=== PATIENT | male | born 1985 | race Caucasian/White ===

== ENCOUNTER 2019-10-21 06:27 | Emergency (ER) | payer OTHER ==
[~2019-10-21] VITALS: Ht 180.3 cm; Wt 68.2 kg
[2019-10-21 06:44] VITALS: Ht 180.3 cm; Wt 68.2 kg
[2019-10-21] MEDS ORDERED: REMERON30 MG PO (06:46)
[2019-10-21] MEDS ORDERED: DEPAKOTE250 MG (06:46)
[2019-10-21] MEDS ORDERED: ZOLOFT50 MG (06:46)
[2019-10-21] MEDS ORDERED: SMZ-TMP DS 800-1 TAB PO (07:22)
[2019-10-21 07:33] VITALS: BP 112/70
== END 2019-10-21 07:30 | disposition home or self-care (01) ==
LOC: D.ER 06:27
DX: L03.90 Cellulitis, unspecified (principal); L98.8 Other specified disorders of the skin and subcutaneous tissue

== ENCOUNTER 2019-11-01 14:47 | Inpatient (IN) | payer MEDICAID ==
[~2019-11-01] VITALS: Ht 180.3 cm; Wt 68.0 kg
[~2019-11-01 14:47] MED LIST: DEPAKOTE250 MG PO; REMERON30 MG PO; SMZ-TMP DS 800-1 TAB PO; ZOLOFT50 MG
[2019-11-01 15:43] VITALS: BP 127/75
--- NOTE | 2019-11-01 15:43 | NUR ---
SL PLACED , BLOOD DRAWN INCLUDING #1 BC
--- NOTE | 2019-11-01 15:47 | NUR ---
#2 BC DRAWN PER APPLICATION ADMINISTRATOR
[2019-11-01 16:23] LABS: CALC OSMOLALITY 258 mosm/kg (275-300); CALCIUM 8.6 mg/dL (8.5-10.1); CARBON DIOXIDE 26.9 mmol/L (21.0-32.0); CHLORIDE - SERUM 96 mmol/L (98-107); GLUCOSE 104 mg/dL (74-106); POTASSIUM - SERUM 4.1 mmol/L (3.5-5.1); SODIUM 131 mmol/L (136-145); UREA NITROGEN 1 mg/dL (7-18); eGFR NON AFRICAN AMERICAN 90 mL/min (90-120)
[2019-11-01 16:26] LABS: BILIRUBIN NEGATIVE (NEGATIVE); GLUCOSE NEGATIVE (NEGATIVE); KETONE NEGATIVE (NEGATIVE); NITRITE NEGATIVE (NEGATIVE); UROBILINOGEN NORMAL (NORMAL)
[2019-11-01 16:31] LABS: BASOPHILS 0.2 % (0-2); EOSINOPHILS 0.1 % (0-7); HEMOGLOBIN 13.8 g/dL (13.5-17.5); IMMATURE GRANULOCYTES 0.3 % (0-5); LYMPHOCYTES 19.2 % (15-50); MCH 31.7 pg (26.0-34.0); MCHC 35.4 g/dL (31.0-37.0); MCV 89.7 fL (80.0-100.0); MEAN PLATELET VOLUME 8.9 fL (7.4-10.4); MONOCYTES 11.6 % (2-11); NEUTROPHILS 68.6 % (40-80); PLATELET COUNT 292 10x3/uL (130-400); RBC 4.35 10x6/uL (4.20-6.10); WBC 8.7 10x3/uL (4.8-10.8)
[2019-11-01 16:40] LABS: ALBUMIN 3.5 g/dL (3.4-5.0); ALKALINE PHOSPHATASE 66 U/L (30-120); ALT (SGPT) 30 U/L (10-68); BILIRUBIN - TOTAL 0.14 mg/dL (0.2-1.3); CKMB 0.7 U/L (0.0-3.6); CREATINE KINASE 217 UL (21-232); PROTEIN - SERUM 6.9 g/dL (6.4-8.2)
[2019-11-01 16:41] LABS: INR 0.95 (0.85-1.17); PROTIME 12.7 SECONDS (11.6-15.0)
[2019-11-01 16:42] LABS: APTT 35.4 SECONDS (22.8-39.4)
[2019-11-01 16:45] LABS: TROPONIN-I < 0.017 ng/mL (0.000-0.060)
[2019-11-01 17:07] VITALS: BP 136/80
--- NOTE | 2019-11-01 17:28 | NUR ---
REPORT TO JENNIFER BOWER
--- NOTE | 2019-11-01 17:45 | NUR ---
ADMIT6 TO ROOM #2212, CONDITION STABLE. NS INFUSING @ 125 ML/HR AND VANCOMYCIN 1 GM INITATED UPON ADM TO ROOM
--- NOTE | 2019-11-01 17:45 | NUR ---
RECEIVED PATIENT FROM ER. ALERT AND ORIENTED. NO C/O PAIN. NO S/S OF ACUTE DISTRESS NOTED. WOUNDS TO NECK, NECROTIC WITH CELLULITIS. IV TO LEFT FOREARM, NS INFUSING @ 125ML/HR. SITE PATENT WITHOUT REDNESS OR SWELLING. VITALS STABLE. DENIES ANY NEEDS AT THIS TIME. CALL LIGHT IN REACH. WILL CONTINUE TO MONITOR.
[2019-11-01 17:46] LABS: UDS - AMPHET NEGATIVE QUAL (NEGATIVE); UDS - BARB NEGATIVE QUAL (NEGATIVE); UDS - BENZO NEGATIVE QUAL (NEGATIVE); UDS - COCAINE NEGATIVE QUAL (NEGATIVE); UDS - OPIATE NEGATIVE QUAL (NEGATIVE); UDS - PCP NEGATIVE QUAL (NEGATIVE); UDS - THC NEGATIVE QUAL (NEGATIVE)
[2019-11-01] MEDS ORDERED: LEVO-T25 MCG PO (17:58)
[2019-11-01 18:26] VITALS: BP 117/73
--- NOTE | 2019-11-01 19:22 | NUR ---
ALERT AND ORIENTED. NO C/O PAIN. NO S/S OF ACUTE DISTRESS NOTED. DENIES ANY NEEDS AT THIS TIME. CALL LIGHT IN REACH. WILL CONTINUE TO MONITOR.
[2019-11-01 20:00] VITALS: BP 117/73; BMI 20.9
[2019-11-01 21:33] VITALS: BP 116/69
[2019-11-02 01:11] VITALS: BP 131/79
[2019-11-02 06:49] VITALS: BP 114/64
[2019-11-02 07:00] LABS: CALC OSMOLALITY 266 mosm/kg (275-300); CALCIUM 8.1 mg/dL (8.5-10.1); CARBON DIOXIDE 25.8 mmol/L (21.0-32.0); CHLORIDE - SERUM 103 mmol/L (98-107); CREATININE - SERUM 0.8 mg/dL (0.6-1.3); GLUCOSE 97 mg/dL (74-106); MAGNESIUM - SERUM 2.1 mg/dL (1.8-2.4); POTASSIUM - SERUM 4.3 mmol/L (3.5-5.1); SODIUM 135 mmol/L (136-145); eGFR NON AFRICAN AMERICAN > 90 mL/min (90-120)
[2019-11-02 07:01] LABS: BASOPHILS 0.3 % (0-2); EOSINOPHILS 0 % (0-7); HEMATOCRIT 36.2 % (42.0-54.0); HEMOGLOBIN 12.3 g/dL (13.5-17.5); IMMATURE GRANULOCYTES 0.1 % (0-5); LYMPHOCYTES 17.6 % (15-50); MCH 30.7 pg (26.0-34.0); MCV 90.3 fL (80.0-100.0); MONOCYTES 10.2 % (2-11); NEUTROPHILS 71.8 % (40-80); PLATELET COUNT 285 10x3/uL (130-400); RBC 4.01 10x6/uL (4.20-6.10); RDW 13.2 % (11.5-14.5); WBC 7.7 10x3/uL (4.8-10.8)
[2019-11-02 07:02] LABS: UREA NITROGEN 3 mg/dL (7-18)
--- NOTE | 2019-11-02 08:42 | NUR ---
HE IS AWAKE, TALKING. HE HAS BLACK BIALTERALLY WOUNDS ON HIS NECK. HE IS NOT EATING BREAKFAST YET, HE IS WAITING FOT THE DOCTOR TO SEE HIM. HE WANTS TO TAKE HIS OWN MEDS, I EXPLAINED TO HIM THAT THEY WILL HAVE TO BE IN THE PRESCRIPTION BOTTLE. THE CALL LIGHT IS WITHIN REACH.
[2019-11-02 09:07] VITALS: BP 113/72
[2019-11-02 13:45] VITALS: BP 124/75
[2019-11-02 13:47] VITALS: Ht 180.3 cm; Wt 68.0 kg
--- NOTE | 2019-11-02 16:52 | NUR ---
THE PATIENT WAS TOLD HE COULD TAKE HIS OWN MEDICATIONS. HIS PRESCRIPTIONS BOTTLES OF SYNTHROID, DEPAKOTE, REMERON TAKEN TO THE PHARMACY TO USE WHILE HE IS HERE.
[2019-11-02 17:56] VITALS: BP 119/77
[2019-11-02 20:00] VITALS: BP 102/57
--- NOTE | 2019-11-02 20:00 | NUR ---
PATIENT RESTING IN BED WITH COVERS OVER HEAD. NO S/S OF ACUTE DISTRESS. NO C/O AT THIS TIME. PATIENT HAS IV IN LEFT FOREARM, NORMAL SALINE @ KVO. IV IS PATENT WITHOUT REDNESS, SWELLING, OR TENDERNESS. PATIENT HAS 3 SCABBED SORES ON NECK (LEFT, RIGHT, AND BACK), THE SCABS ARE BLACK AND PATIENT STATES THEY MILDLY ITCH EVERY ONCE IN A WHILE. PATIENT IS HAVING A BIOPSY TOMORROW, CONSENTS ARE SIGNED. CALL LIGHT WITHIN REACH. WILL CONTINUE TO MONITOR.
[2019-11-03] VITALS: BP 92/62
--- NOTE | 2019-11-03 03:56 | NUR ---
I have reviewed this patient and I concur with the Shift Assessment completed by the Licensed Practical Nurse today this shift.
[2019-11-03 04:00] VITALS: BP 108/69
[2019-11-03 06:41] LABS: BASOPHILS 0.4 % (0-2); EOSINOPHILS 0 % (0-7); HEMATOCRIT 36.8 % (42.0-54.0); HEMOGLOBIN 12.8 g/dL (13.5-17.5); IMMATURE GRANULOCYTES 0.1 % (0-5); LYMPHOCYTES 26.1 % (15-50); MCH 31.4 pg (26.0-34.0); MCHC 34.8 g/dL (31.0-37.0); MCV 90.2 fL (80.0-100.0); MEAN PLATELET VOLUME 8.7 fL (7.4-10.4); MONOCYTES 12.7 % (2-11); NEUTROPHILS 60.7 % (40-80); PLATELET COUNT 289 10x3/uL (130-400); RBC 4.08 10x6/uL (4.20-6.10); RDW 13.1 % (11.5-14.5); WBC 8.5 10x3/uL (4.8-10.8)
[2019-11-03 06:59] LABS: CALC OSMOLALITY 270 mosm/kg (275-300); CALCIUM 8.5 mg/dL (8.5-10.1); CARBON DIOXIDE 26.3 mmol/L (21.0-32.0); CHLORIDE - SERUM 104 mmol/L (98-107); CREATININE - SERUM 0.7 mg/dL (0.6-1.3); GLUCOSE 94 mg/dL (74-106); MAGNESIUM - SERUM 2.1 mg/dL (1.8-2.4); POTASSIUM - SERUM 4.2 mmol/L (3.5-5.1); SODIUM 137 mmol/L (136-145); eGFR NON AFRICAN AMERICAN > 90 mL/min (90-120)
[2019-11-03 07:05] LABS: UREA NITROGEN 5 mg/dL (7-18)
--- NOTE | 2019-11-03 07:50 | NUR ---
PT IS RESTING IN BED WITH EYES CLOSED. RESPIRATIONS ARE EVEN AND UNLABORED. PT IS EASILY AROUSED WITH VERBAL STIMULATION. PT IS AAO X 4 UPON AROUSAL. PIV TO LEFT FA INFUSING PER ORDER WITHOUT DIFFICULTY. PT DENIES PRESENCE OF PAIN/N/V AT THIS TIME. NECROTIC TISSUE NOTED TO LEFT NECK/RIGHT NECK AND BACK OF NECK. PT EXPRESSES CONCERNS RELATED TO HOME MEDICATION AND RESTARTING PSYCH MEDS. HOME MED REC GONE OVER WITH PT AT THIS TIME. PT DENIES PRESENCE OF DYSPNEA. BED IS IN THE LOWEST POSITION. CALL LIGHT AND BEDSIDE TABLE ARE WITHIN REACH. SIDE RAILS X 2. PT DENIES FURTHER NEEDS. WILL CONT TO MONITOR.
[2019-11-03] MEDS ORDERED: SAPHRIS5 MG SL (08:27)
[2019-11-03] MEDS ORDERED: FLUPHENAZINE HC10 MG PO (08:27)
--- NOTE | 2019-11-03 13:35 | NUR ---
ET TUBE IN AIRWAY ON ADMIT TO RR
[2019-11-03 14:09] VITALS: BP 108/61
--- NOTE | 2019-11-03 14:11 | NUR ---
PT ARRIVES TO ROOM VIA BED ESCORTED BY RECOVERY ROOM STAFF. PT IS AAO X 4. DRESSINGS TO NECK NOTED AND ARE CDI. VSS SEE FLOW SHEET. BED IS IN THE LOWEST POSITION. CALL LIGHT AND BEDSIDE TABLE ARE WITHIN REACH. PT DENIES PRESENCE OF N/V/PAIN AT THIS TIME. PT DENIES FURTHER NEEDS. SCDS ARE ON AND WORKING. PT DENIES FURTHER NEEDS. WILL CONT TO MONITOR.
[2019-11-03 15:13] VITALS: BP 115/71
[2019-11-03 16:17] LABS: MAGNESIUM - SERUM 1.8 mg/dL (1.8-2.4); VANCOMYCIN - TROUGH 5.6 ug/mL (10.0-20.0)
--- NOTE | 2019-11-03 17:23 | NUR ---
PAGE PLACED TO CONNIE WINSTON APRN FOR TO NOTIFY OF PT CONTINUED CONCERN RELATED TO HOME MEDICATION.
[2019-11-03 18:43] VITALS: BP 106/66
[2019-11-03 20:00] VITALS: BP 111/58
--- NOTE | 2019-11-03 20:13 | NUR ---
A&0 X 4, DENIES PAIN. BILAT DRESSINGS TO NECK C/D/I. STATES HIS NIGHT MED IS LATE. INFORMED HIM IT IS DUE AT 9PM. PT STATES HE TAKES ONE MEDICATION AT 8PM. THE OTHER 3 9PM SCHEDULED MEDS, HE REFUSES TO TAKE UNTIL 10PM BECAUSE THAT IS HOW HE TAKES THEM AT HOME.
--- NOTE | 2019-11-04 03:43 | NUR ---
I have reviewed this patient and I concur with the Shift Assessment completed by the Licensed Practical Nurse today this shift.
[2019-11-04 04:00] VITALS: BP 115/66
[2019-11-04 08:27] LABS: BASOPHILS 0.6 % (0-2); EOSINOPHILS 0 % (0-7); HEMATOCRIT 36.9 % (42.0-54.0); HEMOGLOBIN 12.5 g/dL (13.5-17.5); IMMATURE GRANULOCYTES 0.1 % (0-5); LYMPHOCYTES 27.5 % (15-50); MCH 30.9 pg (26.0-34.0); MCHC 33.9 g/dL (31.0-37.0); MCV 91.1 fL (80.0-100.0); MEAN PLATELET VOLUME 8.8 fL (7.4-10.4); MONOCYTES 11.3 % (2-11); NEUTROPHILS 60.5 % (40-80); PLATELET COUNT 300 10x3/uL (130-400); RBC 4.05 10x6/uL (4.20-6.10); RDW 13.1 % (11.5-14.5); WBC 8.3 10x3/uL (4.8-10.8)
[2019-11-04 08:36] LABS: CALC OSMOLALITY 270 mosm/kg (275-300); CALCIUM 8.5 mg/dL (8.5-10.1); CHLORIDE - SERUM 105 mmol/L (98-107); CREATININE - SERUM 0.8 mg/dL (0.6-1.3); GLUCOSE 80 mg/dL (74-106); MAGNESIUM - SERUM 2.1 mg/dL (1.8-2.4); POTASSIUM - SERUM 4.3 mmol/L (3.5-5.1); SODIUM 137 mmol/L (136-145); eGFR NON AFRICAN AMERICAN > 90 mL/min (90-120)
[2019-11-04 08:38] LABS: UREA NITROGEN 7 mg/dL (7-18)
[2019-11-04 08:41] VITALS: BP 121/67
--- NOTE | 2019-11-04 08:45 | NUR ---
RESTING IN BED, NO DISTRESS NOTED, EYES CLOSED, CONT TO MONITOR NECK WOUNDS AND DRESSINGS
[2019-11-04 12:16] VITALS: BP 118/73
--- NOTE | 2019-11-04 12:40 | OP ---
PATIENT NAME: GLADIS RUVALCABA MEDICAL RECORD: [id number] :81 LOCATION:[facility] ADMISSION DATE:11/01/19 SURGEON: MAYE SHAH MD DATE OF OPERATION: 11/03/2019 SURGEON: Maye Shah MD PREOPERATIVE DIAGNOSIS: Necrotic tissue, right anterior neck, left anterior neck, and posterior neck. POSTOPERATIVE DIAGNOSIS: Necrotic tissue, right anterior neck, left anterior neck, and posterior neck. PROCEDURE PERFORMED: 1. Incisional biopsy of anterior right and left neck wounds. 2. Excisional debridement of bilateral anterior neck wounds; right side 4 x 4 x 2 cm and left side 5 x 3 x 2 cm. ANESTHESIA: General. COMPLICATIONS: None. SPECIMENS: 1. Skin biopsy for pathology. 2. Skin biopsy for Gram stain culture and sensitivity, anaerobic and aerobic culture and fungal culture. Case was contaminated. ESTIMATED BLOOD LOSS: 10 cc. OPERATIVE COURSE: After consent was obtained, the patient was taken to the operating room and placed in the supine position on the operating table. Next, general anesthesia was given via endotracheal intubation. Thereafter, a timeout was performed to confirm the correct patient and procedure. The neck was prepped and draped in typical sterile fashion. The eschar was sharply debrided using a 15 blade scalpel from the right anterior neck first. The area of debridement was 4 x 4 x 2 cm. Skin biopsies were taken at the edge of the eschar and sent for Gram stain culture and sensitivity and fungal culture. Additional skin biopsy specimens were sent for pathology. The wound bed was then cauterized. The necrotic tissue was debrided until good healthy bleeding tissue was encountered. A Dakin's quarter strength gauze was placed into the wound bed and covered. We then turned our attention to the left side. Again, the eschar was sharply debrided. Total area debrided was 5 x 3 x 2 cm. The wound bed was again cleaned until healthy bleeding tissue was encountered. The wound bed was then cauterized with electrocautery. There was no evidence of bleeding. Another Dakin's dressing was placed in the wound bed and cover with dry gauze dressings. At the end of the case, all needle and instrument counts were correct. No complications occurred. The patient was extubated and transferred to the PACU in stable condition. TRANSINT:[id number] Voice Confirmation ID: [id number] DOCUMENT ID: [id number] OPERATIVE REPORT [id number] GLADIS RUVALCABA,MAYE Hensley MD at 1240 CC: [id number] DICTATION DATE: 11/03/19 131 SOW FARM MANAGER: 11/03/19 2252 ADM IN [facility] [address] [place] [address]
--- NOTE | 2019-11-04 14:00 | NUR ---
DRESSING CHANGED TO RIGHT AND LEFT NECK, WET TO DRY APPLIED, BAILEY WELL, NO BLEEDING NOTED, CONT TO MONITOR
[2019-11-04 16:15] VITALS: BP 119/88
[2019-11-04 20:00] VITALS: BP 117/68
--- NOTE | 2019-11-04 20:00 | NUR ---
PATIENT RESTING IN BED WITH EYES OPEN. NO S/S OF ACUTE DISTRESS. NO C/O AT THIS TIME. PATIENT HAS LEFT FOREARM IV, NORMAL SALINE @ 10 ML/HR. IV IS PATENT WITHOUT REDNESS, SWELLING, OR TENDERNESS. PATIENT HAS SORES ON LEFT AND RIGHT SIDE OF NECK, DRESSINGS C/D/I. PATIENT HAS A SORE ON BACK OF NECK THAT HAS SCAB OVER IT. PATIENT IS UP ADLIB TO BATHROOM. CALL LIGHT WITHIN REACH. WILL CONTINUE TO MONITOR.
[2019-11-05] VITALS: BP 117/79
--- NOTE | 2019-11-05 03:32 | NUR ---
I have reviewed this patient and I concur with the Shift Assessment completed by the Licensed Practical Nurse today this shift.
[2019-11-05 04:00] VITALS: BP 106/57
[2019-11-05 06:27] LABS: BASOPHILS 0.9 % (0-2); EOSINOPHILS 0.2 % (0-7); HEMATOCRIT 34.5 % (42.0-54.0); HEMOGLOBIN 11.7 g/dL (13.5-17.5); IMMATURE GRANULOCYTES 0.2 % (0-5); LYMPHOCYTES 39.2 % (15-50); MCH 30.7 pg (26.0-34.0); MCHC 33.9 g/dL (31.0-37.0); MCV 90.6 fL (80.0-100.0); MEAN PLATELET VOLUME 8.7 fL (7.4-10.4); MONOCYTES 14.8 % (2-11); NEUTROPHILS 44.7 % (40-80); PLATELET COUNT 292 10x3/uL (130-400); RBC 3.81 10x6/uL (4.20-6.10); RDW 12.9 % (11.5-14.5)
[2019-11-05 06:34] LABS: CALC OSMOLALITY 274 mosm/kg (275-300); CALCIUM 8.2 mg/dL (8.5-10.1); CARBON DIOXIDE 27.3 mmol/L (21.0-32.0); CHLORIDE - SERUM 107 mmol/L (98-107); CREATININE - SERUM 0.7 mg/dL (0.6-1.3); GLUCOSE 88 mg/dL (74-106); MAGNESIUM - SERUM 2.1 mg/dL (1.8-2.4); POTASSIUM - SERUM 4.1 mmol/L (3.5-5.1); SODIUM 139 mmol/L (136-145); UREA NITROGEN 7 mg/dL (7-18); eGFR NON AFRICAN AMERICAN > 90 mL/min (90-120)
[2019-11-05 06:39] LABS: WBC 5.5 10x3/uL (4.8-10.8)
--- NOTE | 2019-11-05 07:44 | NUR ---
PT LYING IN BED WITH COVERS OVER HIS HEAD. PT EASILY AWAKENED AND COOPERATED WITH ASSESSMENT. IV IN LEFT FA, PATENT, SITE IS CDI, NO REDNESS OR SWELLING AT SITE. PT DRESSING ON NECK IS CDI. PT REQUESTED CHEESEBURGER FOR LUNCH, PT DOES NOT HAVE DIET ON FILE BUT WAS BROUGHT A TRAY. WILL ADD DIET TO PT CHART. NO OTHER NEEDS VOICED, CL IN REACH, BED IN LOWEST POSITION. ASSUME PT CARE
[2019-11-05 08:10] VITALS: BP 103/58
--- NOTE | 2019-11-05 12:00 | NUR ---
ADMINISTERED SCHEDULED MEDICATION TO PT, APPLIED TAGADERM TO PT NICOTINE PATCH SO THAT HE WOULD NOT LOSE IT EASILY. CHANGED PT DRESSINGS ON LEFT AND RT NECK AREA, PT HAD SEVERAL QUESTIONS IN REGARDS TO PATHOLOGY AND WHEN IT SHOWS CANCER WHAT OUR PLAN WILL BE. EXPLAINED TO PT THAT IF PATHOLOGY SHOWS CANCER CELLS WE WILL MOST LIKELY CONSULT ONCOLOGIST AND DEPENDING ON THE TYPE AND STAGE TREATMENT WILL GO FROM THERE. PT STATES " I KNOW IT IS CANCER BECAUSE IT RUNS ON MY MOTHERS SIDE. ENCOURAGED PT TO THINK POSITIVE AND TO NOT WEBB AHEAD OF THE TEST RESULTS. EXPLAINED MY CLEANING AND REDRESSING PT WOUNDS AND THE NEED FOR ABX AND DRESSING CHANGES. PT VERBALIZED UNDERSTANDING AND THANKED ME FOR TAKING TIME TO TALK WITH HIM. CONTINUE WITH PLAN OF CARE
[2019-11-05 12:19] VITALS: BP 117/70
--- NOTE | 2019-11-05 15:12 | NUR ---
PT ASLEEP IN BED WITH BLANKET OVER HEAD. NO S/SX OF DISTRESS. CL IN REACH. DRESSINGS INTACT, CONTINUE WITH PLAN OF CARE
[2019-11-05 16:44] VITALS: BP 108/66
--- NOTE | 2019-11-05 16:55 | NUR ---
I have reviewed this patient and I concur with the Shift Assessment completed by the Licensed Practical Nurse today this shift.
[2019-11-05 20:00] VITALS: BP 103/63
--- NOTE | 2019-11-05 21:30 | NUR ---
LYING IN BED WATCHING TV AND WRITING IN NOTEBOOK. ALERT AND ORIENTED X4. RESP EVEN AND NONLABORED. DRSGS NOTED TO RT AND LT SIDE OF NECK AND BACK OF NECK. RATES PAIN IN NECK 2 ON PAIN SCALE. AMBULATORY. NO DISTRESS. DENIES NEEDS. NS @ 10 MLHR INFUSING IN LT FOREARM. SR ELEVATED X2. CL IN REACH.
[2019-11-06] VITALS (7 sets, daily range): BP systolic 99–122; BP diastolic 50–69
--- NOTE | 2019-11-06 03:05 | NUR ---
RESTING WITH EYES CLOSED. RESP EVEN AND NONLABORED. NO DISTRESS. CL IN REACH.
[2019-11-06 04:51] LABS: EOSINOPHILS 0.2 % (0-7); HEMATOCRIT 34.5 % (42.0-54.0); HEMOGLOBIN 11.6 g/dL (13.5-17.5); IMMATURE GRANULOCYTES 0.3 % (0-5); LYMPHOCYTES 39.7 % (15-50); MCH 30.5 pg (26.0-34.0); MCHC 33.6 g/dL (31.0-37.0); MCV 90.8 fL (80.0-100.0); MEAN PLATELET VOLUME 8.7 fL (7.4-10.4); MONOCYTES 11.9 % (2-11); NEUTROPHILS 46.9 % (40-80); PLATELET COUNT 295 10x3/uL (130-400); RDW 12.8 % (11.5-14.5); WBC 6.2 10x3/uL (4.8-10.8)
[2019-11-06 05:04] LABS: CALC OSMOLALITY 276 mosm/kg (275-300); CALCIUM 8.4 mg/dL (8.5-10.1); CARBON DIOXIDE 29.2 mmol/L (21.0-32.0); CHLORIDE - SERUM 107 mmol/L (98-107); CREATININE - SERUM 0.7 mg/dL (0.6-1.3); GLUCOSE 93 mg/dL (74-106); MAGNESIUM - SERUM 2.1 mg/dL (1.8-2.4); POTASSIUM - SERUM 4.1 mmol/L (3.5-5.1); SODIUM 139 mmol/L (136-145); eGFR NON AFRICAN AMERICAN > 90 mL/min (90-120)
[2019-11-06 05:05] LABS: UREA NITROGEN 9 mg/dL (7-18)
--- NOTE | 2019-11-06 09:30 | NUR ---
PT LYING IN BED SIDEWAYS STATED HE FEELS "STUPID, EMBARASSED AND HAPPY AT THE SAME TIME. ASKDE PT WHY HE FEELS THIS WAY AND PT STATD THAT HE WAS JUST INFORMED THAT HE DOES NOT HAVE CANCER AND HE FEELS BAD FOR WASTING EVERYONES TIME. TOLD PATIENT THAT I AM GLAD HE CHOSE TO COME IN TO GET ANSWERS THAT WERE NEEDED AND THAT NOW WE CAN MOVE FORAWRD. PT STATED HE IS TO BE DC HOME TODAY AND ASKED WHEN HE GETS TO LEAVE. EXPLAINED PT NEEDS TO STILL SEE HOSPITALIST BEFORE DC CAN BE PLACED. NO OTHER NEEDS AT THIS TIME. CONTINUE WITH PLAN OF CARE
[2019-11-06 10:08] LABS: FUNGUS STAIN Final report (())
--- NOTE | 2019-11-06 10:49 | NUR ---
I have reviewed this patient and I concur with the Shift Assessment completed by the Licensed Practical Nurse today this shift.
--- NOTE | 2019-11-06 11:58 | NUR ---
PT REFUSED TORADOL, STATED HE IS GOING HOME AND DIDN'T WANT ANYTHING ELSE. ASKED IF DOCTORS HAD MADE IT AND I TOLD PT NOT YET BUT SHOULDN'T BE LONGER. CONTINUE WITH PLAN OF CARE
--- NOTE | 2019-11-06 16:02 | NUR ---
PT STATED HE WAS BEING D/C AND SURGEY SAID HE CAN GO, SPOKE TO DR PERKINS AND THAD THOMPSON IN REGARDS TO PT DC, ASKD ME TO PAGE DR SHAH AND CONFIRMED OK TO DC. PAGED DR SHAH AND WAS TOLD YES. RELAYED MESSAGE TO DR MAYORGA. PT REFUSED IV ABX SCHEDULED STATED HE IS GOING HOME AND REFUSED VANC TROUGH. CONTINUE WITH PLAN OF CARE
--- NOTE | 2019-11-06 20:00 | NUR ---
ALERT UP AMBULATING IN ROOM, ASKING ABOUT DISCHARGE TONIGHT, INSTRUCTED HAD SPOKE WITH CARLEY ONEIL AND NEED TO STAY TONIGHT FOR IV ANTIABIOTICS, AGREED, SEE SHIFT ASSESSMENT, CALL LIGHT IN REACH
[2019-11-07 04:00] VITALS: BP 108/53
[2019-11-07 06:26] LABS: BASOPHILS 0.9 % (0-2); EOSINOPHILS 0.2 % (0-7); HEMATOCRIT 35.7 % (42.0-54.0); HEMOGLOBIN 12.1 g/dL (13.5-17.5); IMMATURE GRANULOCYTES 0.4 % (0-5); LYMPHOCYTES 38.5 % (15-50); MCH 30.6 pg (26.0-34.0); MCHC 33.9 g/dL (31.0-37.0); MCV 90.2 fL (80.0-100.0); MONOCYTES 12.1 % (2-11); NEUTROPHILS 47.9 % (40-80); PLATELET COUNT 310 10x3/uL (130-400); RBC 3.96 10x6/uL (4.20-6.10); RDW 12.7 % (11.5-14.5); WBC 5.4 10x3/uL (4.8-10.8)
[2019-11-07 06:41] LABS: ALBUMIN 2.6 g/dL (3.4-5.0); ALKALINE PHOSPHATASE 60 U/L (30-120); ALT (SGPT) 59 U/L (10-68); BILIRUBIN - TOTAL 0.37 mg/dL (0.2-1.3); CALC OSMOLALITY 278 mosm/kg (275-300); CALCIUM 7.4 mg/dL (8.5-10.1); CARBON DIOXIDE 25.5 mmol/L (21.0-32.0); CHLORIDE - SERUM 108 mmol/L (98-107); CREATININE - SERUM 0.7 mg/dL (0.6-1.3); GLUCOSE 95 mg/dL (74-106); MAGNESIUM - SERUM 1.9 mg/dL (1.8-2.4); PHOSPHOROUS 3.9 mg/dL (2.5-4.9); PROTEIN - SERUM 5.9 g/dL (6.4-8.2); SODIUM 141 mmol/L (136-145); UREA NITROGEN 7 mg/dL (7-18); VALPROIC ACID (DEPAKOTE) 5.5 ug/mL (50.0-100.0); eGFR NON AFRICAN AMERICAN > 90 mL/min (90-120)
[2019-11-07 06:50] LABS: POTASSIUM - SERUM 3.4 mmol/L (3.5-5.1)
--- NOTE | 2019-11-07 07:46 | NUR ---
ALERT AND ORIENTED. LUNGS CLEAR BILATERALLY. HEART SOUNDS S1 AND S2 HEARD IN ALL AYERS. BOWEL SOUNDS ACTIVE X 4. DRSGS TO NECK C/D/I. IV TO RIGHT HAND PATENT WITHOUT REDNESS. DENIES NEEDS. BED LOW. CALL MORALES AND PERSONAL ITEMS IN REACH. WILL CONTINUE TO MONITOR.
[2019-11-07 08:14] VITALS: BP 89/53
--- NOTE | 2019-11-07 11:01 | NUR ---
DRSG CHANGED TO NECK X 3 PER ORDER.
[2019-11-07] MEDS ORDERED: CLEOCIN HCL300 MG PO (11:10)
[2019-11-07] MEDS ORDERED: VIBRAMYCIN 100100 MG PO (11:11)
[2019-11-07] MEDS ORDERED: SANTYL30 GM TP (11:15)
--- NOTE | 2019-11-07 12:37 | NUR ---
DISCHARGE EDUCATION PROVIDED BOTH WRITTEN AND VERBAL. VERBALIZED UNDERSTANDING. DENIES FURTHER QUESTIONS. CRYSTAL SENT HOME WITH PATIENT ALONG WITH GAUZE AND TAPE FOR DRSG CHANGED. EDUCATION PROVIDED FOR DRSG CHANGES. VERBALIZED UNDERSTANDING. IV REMOVED FROM RIGHT HAND WITH TIP INTACT. EATING LUNCH PRIOR TO DC.
--- NOTE | 2019-11-07 12:45 | MORECARE ---
CASE MANAGEMENT DISCHARGE SUMMARY PATIENT: GLADIS RUVALCABA UNIT: [id number] ADM DATE: 11/01/19 AGE: 33 : 81 SEX: M ROOM/BED: D.2212 AUTHOR: GUILLERMINA,DOC PHYSICIAN: REFERRING PHYSICIAN: NIA LOZA MD DATE OF SERVICE: 11/07/19 Discharge Plan Patient Name: GLADIS RUVALCABA Facility: [facility]:[place] : 1985 Planned Disposition: Home Anticipated Discharge Date: 11/07/19 Discharge Date: Expected LOS: 6 Initial Reviewer: [email or web address] Initial Review Date: 11/01/2019 Generated: 11/07/19 1:45 pm Comments DCP- Discharge Planning Updated by [email or web address]: Vane Russell on 11/07/19 11:[address] CM met with patient to complete initial dc planning assessment. CM educated patient on the CM role and verbal consent given by patient to complete assessment. Patient is in the process of moving from [place] to [place]. Patient states that he will be discharging home with his brother, Luis Armando Ruvalcaba Jr (no phone #) and feels this is a safe discharge. Also, states that his crxwiz-ws-ech will changing his dressings. Patient does not have a PCP as yet. Pharmacy: [facility]. Emergency contact: Shelby Youssef #[phone] (ex-). Patient states that he has a good support system with his ex-, brother and xbfmny-nc-ujt. Nursing has supplied the patient with his dressings, Santyl ointment and tape. Encouraged patient to make sure that his hands are freshly washed any time that he touches his neck, in order to avoid further infection. 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 CM discussed availability of home health, rehab services, and medical equipment. Patient denied known discharge needs at this time. Patient will be driven home by his pwurcw-ye-fpl. Patient voices no additional needs at this time. DCPIA - Discharge Planning Initial Assessment Updated by [email or web address]: Vane Russell on 11/07/19 12:42 pm * Is the patient Alert and Oriented? Yes * PCP None at present * Pharmacy [facility] * Preadmission Environment Home Alone * ADLs Independent * Equipment None * Other Equipment NA * List name and contact numbers for known caregivers / representatives who currently or will assist patient after discharge: Shelby Youssef (ex-) [phone] * Verbal permission to speak to the caregivers and representatives has been obtained from the patient. N/A * Community resources currently utilized None * Please name any agencies selected above. NA * Additional services required to return to the preadmission environment? No * Can the patient safely return to the preadmission environment? Yes * Has this patient been hospitalized within the prior 30 days at any hospital? No Patient Name: GLADSI RUVALCABA Page [id number] at 1245 All edits/amendments must be made on the electronic document DICTATION DATE: 11/07/19 1245 INSURANCE ATTORNEY: PRADEEP 11/07/19 1245 RPT#: [id number] [place] DATE: STATUS: ADM IN [facility] [address] [place] [address] END OF REPORT
[2019-11-07 12:54] VITALS: BP 125/76
--- NOTE | 2019-11-07 12:56 | MORECARE ---
CASE MANAGEMENT DISCHARGE SUMMARY PATIENT: GLADIS RUVALCABA UNIT: [id number] ADM DATE: 11/01/19 AGE: 33 : 81 SEX: M ROOM/BED: D.2212 AUTHOR: GUILLERMINA,DOC PHYSICIAN: REFERRING PHYSICIAN: NIA LOZA MD DATE OF SERVICE: 11/07/19 Discharge Plan Patient Name: GLADIS RUVALCABA Facility: [facility]:[place] : 1985 Planned Disposition: Home Anticipated Discharge Date: 11/07/19 Discharge Date: Expected LOS: 6 Initial Reviewer: [email or web address] Initial Review Date: 11/01/2019 Generated: 11/07/19 1:55 pm Comments DCP- Discharge Planning Updated by [email or web address]: Vane Russell on 11/07/19 11:[address] CM met with patient to complete initial dc planning assessment. CM educated patient on the CM role and verbal consent given by patient to complete assessment. Patient is in the process of moving from [place] to [place]. Patient states that he will be discharging home with his brother, Luis Armando Ruvalcaba Jr (no phone #) and feels this is a safe discharge. Patient's phone #[phone]. States that he is in the process of changing his address. Also, states that his ulbizl-ia-aun will be changing his dressings. Patient does not have a PCP as yet. Pharmacy: [facility]. Emergency contact: Shelby Domoniqeu #[phone] (ex-). Patient states that he has a good support system with his ex-, brother and asnpws-sl-mhp. Nursing has supplied the patient with his dressings, Santyl ointment and tape. Encouraged patient to make sure that his hands are freshly washed any time that he touches his neck, in order to avoid further infection. 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 CM discussed availability of home health, rehab services, and medical equipment. Patient denied known discharge needs at this time. Patient will be driven home by his zlpice-uy-wdw. Patient voices no additional needs at this time. DCPIA - Discharge Planning Initial Assessment Updated by [email or web address]: Vane Russell on 11/07/19 12:42 pm * Is the patient Alert and Oriented? Yes * PCP None at present * [facility]acy [facility] * Preadmission Environment Home Alone * ADLs Independent * Equipment None * Other Equipment NA * List name and contact numbers for known caregivers / representatives who currently or will assist patient after discharge: Shelby Youssef (ex-) [phone] * Verbal permission to speak to the caregivers and representatives has been obtained from the patient. N/A * Community resources currently utilized None * Please name any agencies selected above. NA * Additional services required to return to the preadmission environment? No * Can the patient safely return to the preadmission environment? Yes * Has this patient been hospitalized within the prior 30 days at any hospital? No Last DP export: 11/07/19 11:45 am Patient Name: GLADIS RUVALCABA Page [id number] at 1256 All edits/amendments must be made on the electronic document DICTATION DATE: 11/07/19 1255 AUTOMATIC PAINT SPRAYER OPERATOR: PRADEEP 11/07/19 1255 RPT#: [id number] DC DATE: STATUS: ADM IN [facility] [address] [place] [address] END OF REPORT
--- NOTE | 2019-11-07 13:21 | NUR ---
PATIENT DC HOME WITH ALL BELONGINGS AND MEDICATIONS FROM [facility].
--- NOTE | 2019-11-07 13:54 | MORECARE ---
CASE MANAGEMENT DISCHARGE SUMMARY PATIENT: GLADIS RUVALCABA UNIT: [id number] ADM DATE: 11/01/19 AGE: 33 : 81 SEX: M ROOM/BED: D.2212 AUTHOR: GUILLERMINA,DOC PHYSICIAN: REFERRING PHYSICIAN: NIA LOZA MD DATE OF SERVICE: 11/07/19 Discharge Plan Patient Name: GLADIS RUVALCABA Facility: [facility]:[place] : 1985 Planned Disposition: Home Anticipated Discharge Date: 11/07/19 Discharge Date: 11/07/2019 Expected LOS: 6 Initial Reviewer: [email or web address] Initial Review Date: 11/01/2019 Generated: 11/07/19 2:53 pm Comments DCP- Discharge Planning Updated by [email or web address]: Vane Russell on 11/07/19 11:[address] CM met with patient to complete initial dc planning assessment. CM educated patient on the CM role and verbal consent given by patient to complete assessment. Patient is in the process of moving from [place] to [place]. Patient states that he will be discharging home with his brother, Luis Armando Ruvalcaba Jr (no phone #) and feels this is a safe discharge. Patient's phone #[phone]. States that he is in the process of changing his address. Also, states that his wwjagn-iu-bax will be changing his dressings. Patient does not have a PCP as yet. Pharmacy: [facility]. Emergency contact: Shelby Domonique #[phone] (ex-). Patient states that he has a good support system with his ex-, brother and hciyjm-bp-wpx. Nursing has supplied the patient with his dressings, Santyl ointment and tape. Encouraged patient to make sure that his hands are freshly washed any time that he touches his neck, in order to avoid further infection. 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 CM discussed availability of home health, rehab services, and medical equipment. Patient denied known discharge needs at this time. Patient will be driven home by his wmzigi-cr-wmy. Patient voices no additional needs at this time. DCPIA - Discharge Planning Initial Assessment Updated by [id number]: Vane Russell on 11/07/19 12:42 pm * Is the patient Alert and Oriented? Yes * PCP None at present * [facility]acy [facility] * Preadmission Environment Home Alone * ADLs Independent * Equipment None * Other Equipment NA * List name and contact numbers for known caregivers / representatives who currently or will assist patient after discharge: Shelby Youssef (ex-) [phone] * Verbal permission to speak to the caregivers and representatives has been obtained from the patient. N/A * Community resources currently utilized None * Please name any agencies selected above. NA * Additional services required to return to the preadmission environment? No * Can the patient safely return to the preadmission environment? Yes * Has this patient been hospitalized within the prior 30 days at any hospital? No Last DP export: 11/07/19 11:56 am Patient Name: GLADIS RUVALCABA Page 97824 at 1354 All edits/amendments must be made on the electronic document DICTATION DATE: 11/07/19 1353 TILE TRIMMER: PRADEEP 11/07/19 1353 RPT#: [id number] DC DATE:11/07/19 STATUS: DIS IN [facility] [address] [place] [address] END OF REPORT
--- NOTE | 2019-11-07 14:45 | MORECARE ---
CASE MANAGEMENT DISCHARGE SUMMARY PATIENT: GLADIS RUVALCABA UNIT: [id number] ADM DATE: 11/01/19 AGE: 33 : 81 SEX: M ROOM/BED: D.2212 AUTHOR: GUILLERMINA,DOC PHYSICIAN: REFERRING PHYSICIAN: NIA LOZA MD DATE OF SERVICE: 11/07/19 Discharge Plan Patient Name: GLADIS RUVALCABA Facility: [facility]:[place] : 1985 Planned Disposition: Home Anticipated Discharge Date: 11/07/19 Discharge Date: 11/07/2019 Expected LOS: 6 Initial Reviewer: [email or web address] Initial Review Date: 11/01/2019 Generated: 11/07/19 3:45 pm Comments DCP- Discharge Planning Updated by [email or web address]: Vane Russell on 11/07/19 11:[address] CM met with patient to complete initial dc planning assessment. CM educated patient on the CM role and verbal consent given by patient to complete assessment. Patient is in the process of moving from [place] to [place]. Patient states that he will be discharging home with his brother, Luis Armando Ruvalcaba Jr (no phone #) and feels this is a safe discharge. Patient's phone #[phone]. States that he is in the process of changing his address. Also, states that his mtgaeh-fq-wzw will be changing his dressings. Patient does not have a PCP as yet. Pharmacy: [facility]. Emergency contact: Shelby Youssef #[phone] (ex-). Patient states that he has a good support system with his ex-, brother and wmdoqm-hq-twc. Nursing has supplied the patient with his dressings, Santyl ointment and tape. Encouraged patient to make sure that his hands are freshly washed any time that he touches his neck, in order to avoid further infection. 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 CM discussed availability of home health, rehab services, and medical equipment. Patient denied known discharge needs at this time. Patient will be driven home by his tkbhvf-ek-pbl. Patient voices no additional needs at this time. DCPIA - Discharge Planning Initial Assessment Updated by [email or web address]: Vane Russell on 11/07/19 12:42 pm * Is the patient Alert and Oriented? Yes * PCP None at present * [facility]acy [facility] * Preadmission Environment Home Alone * ADLs Independent * Equipment None * Other Equipment NA * List name and contact numbers for known caregivers / representatives who currently or will assist patient after discharge: Shelby Youssef (ex-) [phone] * Verbal permission to speak to the caregivers and representatives has been obtained from the patient. N/A * Community resources currently utilized None * Please name any agencies selected above. NA * Additional services required to return to the preadmission environment? No * Can the patient safely return to the preadmission environment? Yes * Has this patient been hospitalized within the prior 30 days at any hospital? No Last DP export: 11/07/19 12:54 pm Patient Name: GLADIS RUVALCABA Page [id number] at 1445 All edits/amendments must be made on the electronic document DICTATION DATE: 11/07/19 1445 STAPLE CUTTER: PRADEEP 11/07/19 1445 RPT#: [id number] DC DATE:11/07/19 STATUS: DIS IN [facility] [address] [facility] [place] [address] END OF REPORT
--- NOTE | 2019-11-08 09:14 | MORECARE ---
CASE MANAGEMENT DISCHARGE SUMMARY PATIENT: GLADIS RUVALCABA UNIT: [id number] ADM DATE: 11/01/19 AGE: 33 : 81 SEX: M ROOM/BED: D.2212 AUTHOR: GUILLERMINA,DOC PHYSICIAN: REFERRING PHYSICIAN: NIA LOZA MD DATE OF SERVICE: 11/08/19 Discharge Plan Patient Name: GLADIS RUVALCABA Facility: [facility]:Fine : 1985 Planned Disposition: Home Anticipated Discharge Date: 11/07/19 Discharge Date: 11/07/2019 Expected LOS: 6 Initial Reviewer: [email or web address] Initial Review Date: 11/01/2019 Generated: 11/08/19 10:13 am Comments DCP- Discharge Planning Updated by [email or web address]: Vane Russell on 11/07/19 11:[address] CM met with patient to complete initial dc planning assessment. CM educated patient on the CM role and verbal consent given by patient to complete assessment. Patient is in the process of moving from [place] to [place]. Patient states that he will be discharging home with his brother, Luis Armando Ruvalcaba Jr (no phone #) and feels this is a safe discharge. Patient's phone #[phone]. States that he is in the process of changing his address. Also, states that his eayupu-ui-zlu will be changing his dressings. Patient does not have a PCP as yet. Pharmacy: [facility]. Emergency contact: Shelby Youssef #[phone] (ex-). Patient states that he has a good support system with his ex-, brother and deowkm-se-dms. Nursing has supplied the patient with his dressings, Santyl ointment and tape. Encouraged patient to make sure that his hands are freshly washed any time that he touches his neck, in order to avoid further infection. 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 CM discussed availability of home health, rehab services, and medical equipment. Patient denied known discharge needs at this time. Patient will be driven home by his [id number]-pm-bly. Patient voices no additional needs at this time. DCPIA - Discharge Planning Initial Assessment Updated by [email or web address]: Vane Russell on 11/07/19 12:42 pm * Is the patient Alert and Oriented? Yes * PCP None at present * [facility]acy [facility] * Preadmission Environment Home Alone * ADLs Independent * Equipment None * Other Equipment NA * List name and contact numbers for known caregivers / representatives who currently or will assist patient after discharge: Shelby Youssef (ex-) [phone] * Verbal permission to speak to the caregivers and representatives has been obtained from the patient. N/A * Community resources currently utilized None * Please name any agencies selected above. NA * Additional services required to return to the preadmission environment? No * Can the patient safely return to the preadmission environment? Yes * Has this patient been hospitalized within the prior 30 days at any hospital? No Last DP export: 11/07/19 1:45 pm Patient Name: GLADIS RUVALCABA Page [id number] at 0914 All edits/amendments must be made on the electronic document DICTATION DATE: 11/08/19912 FURNITURE MOVER DRIVER: PRADEEP 11/08/19912 RPT#: [id number] DC DATE:11/07/19 STATUS: DIS IN [facility] [address] [place] [address] END OF REPORT
== END 2019-11-07 13:21 | disposition home or self-care (01) | DRG 300 ==
LOC: D.ER 14:47 → D.MS 16:54
PROVIDERS: Emergency Medicine; Family Medicine; Surgery; ADMIT Family Medicine; ATTEND Family Medicine
PROC: 0HB4XZX Excision of Neck Skin, External Approach, Diagnostic (ICD-10-PCS; 2019-11-03)
PROC: 0HB4XZZ Excision of Neck Skin, External Approach (ICD-10-PCS; principal; 2019-11-03 12:00)
DX: I96 Gangrene, not elsewhere classified (principal); L03.221 Cellulitis of neck; F17.203 Nicotine dependence unspecified, with withdrawal; F31.30 Bipolar disorder, current episode depressed, mild or moderate severity, unspecified; D64.9 Anemia, unspecified; F12.90 Cannabis use, unspecified, uncomplicated

== ENCOUNTER 2019-12-12 15:59 | Emergency (ER) | payer MEDICAID ==
[~2019-12-12] VITALS: Ht 180.3 cm; Wt 84.1 kg
[~2019-12-12 15:59] MED LIST changes: +CLEOCIN HCL300 MG PO; +FLUPHENAZINE HC10 MG PO; +LEVO-T25 MCG PO; +SANTYL30 GM TP; +SAPHRIS5 MG SL; +VIBRAMYCIN 100100 MG PO
[2019-12-12 16:04] VITALS: BP 118/69; Ht 180.3 cm; Wt 84.1 kg
[2019-12-12] MEDS ORDERED: SAPHRIS5 MG SL (16:13)
== END 2019-12-12 16:21 | disposition home or self-care (01) ==
LOC: D.ER 15:59
DX: Z76.0 Encounter for issue of repeat prescription (principal); F20.9 Schizophrenia, unspecified

== ENCOUNTER 2019-12-18 16:44 | Emergency (ER) | payer MEDICAID ==
[~2019-12-18] VITALS: Ht 180.3 cm; Wt 84.1 kg
[2019-12-18 16:57] VITALS: BP 124/63; Ht 180.3 cm; Wt 84.1 kg
[2019-12-18] MEDS ORDERED: ZYPREXA10 MG PO (17:14)
== END 2019-12-18 17:21 | disposition home or self-care (01) ==
LOC: D.ER 16:44
DX: Z76.0 Encounter for issue of repeat prescription (principal)

== ENCOUNTER 2020-09-10 11:00 | Emergency (ER) | payer MEDICAID ==
[~2020-09-10] VITALS: Ht 180.3 cm; Wt 61.4 kg
[~2020-09-10 11:00] MED LIST changes: +ZYPREXA10 MG PO
[2020-09-10 11:04] VITALS: Ht 180.3 cm; Wt 61.4 kg
== END 2020-09-10 13:54 | disposition home or self-care (01) ==
LOC: D.ER 11:00
DX: F20.9 Schizophrenia, unspecified (principal); Z76.0 Encounter for issue of repeat prescription; I10 Essential (primary) hypertension; Z72.0 Tobacco use